=== PATIENT | male | born 2000 | race African-American/Black ===

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

== ENCOUNTER 2019-09-09 23:28 | Emergency (ER) | payer OTHER, MEDICAID ==
[~2019-09-09] VITALS: Ht 185.4 cm; Wt 62.0 kg
[2019-09-10] MEDS ORDERED: IBUPROFEN 600MG TABLET PO ONE (03:15)
[2019-09-10 03:47] VITALS: BP 128/74
== END 2019-09-10 03:48 | disposition home or self-care (01) ==
LOC: ER 23:28
DX: R51 Headache (principal); F90.9 Attention-deficit hyperactivity disorder, unspecified type; V49.88XA Car occupant (driver) (passenger) injured in other specified transport accidents, initial encounter; Y93.89 Activity, other specified; Y92.89 Other specified places as the place of occurrence of the external cause; Y99.8 Other external cause status
CPT/HCPCS: 99282